=== PATIENT | female | born 2000 | race American Indian/Alaskan Native ===

== ENCOUNTER 2023-01-05 01:19 | Observation (INO) | payer BC ==
[2023-01-05] MEDS ORDERED: Lactated Ringers 1,000 ML IV ONE (01:49)
[2023-01-05] MEDS ORDERED: Acetaminophen 325 MG Tab PO ONE (01:50)
[2023-01-05] MEDS ORDERED: Lactated Ringers 1,000 ML IV SCH (03:45)
== END 2023-01-05 06:11 | disposition home or self-care (01) ==
LOC: JD.OB 01:19
PROVIDERS: ADMIT Family Medicine; ATTEND Family Medicine
DX: O26.893 Other specified pregnancy related conditions, third trimester (principal); R10.9 Unspecified abdominal pain; Z3A.38 38 weeks gestation of pregnancy
CPT/HCPCS: 0352U; 59025; 84112; 96360; 96361; A9270; J7120

== ENCOUNTER 2023-01-21 00:52 | Inpatient (IN) | payer BC ==
[2023-01-21] MEDS ORDERED: Calcium Carbonate 500 MG Tab.Chew PO PRN (12:36)
[2023-01-21] MEDS ORDERED: Ondansetron 4 MG/2 ML SDV IVPUSH PRN (12:36)
[2023-01-21] MEDS ORDERED: Lidocaine 1% 50 ML MDV INJECT ONE (12:36)
[2023-01-21] MEDS ORDERED: Nalbuphine 10 MG/0.5 ML Syringe IVPUSH PRN (12:36)
[2023-01-21] MEDS ORDERED: Sodium Chloride 0.9% 10 ML Syringe FLUSH PRN (12:36)
[2023-01-21] MEDS ORDERED: Misoprostol 25 MCG (1/4 of 100 MCG) Tab PO ONE (12:42)
[2023-01-21] MEDS ORDERED: Penicillin G Potassium 5 MILLUNITS in Sodium Chloride 0.9% 100 ML IV SCH (12:45)
[2023-01-21 13:00] LABS: BASOPHILS PERCENT AUTO 0.1 % (0.0-1.0); EOSINOPHILS ABSOLUTE AUTO 0.1 K/mm3 (0.0-0.4); EOSINOPHILS PERCENT AUTO 1.3 % (0.0-6.0); HEMATOCRIT 34.6 % (37.0-47.0); HEMOGLOBIN 11.4 gm/dl (12.0-16.0); IMMATURE GRAN ABSOLUTE AUTO 0.03 K/mm3 (0.00-0.05); IMMATURE GRAN PERCENT AUTO 0.4 % (0.0-0.4); LYMPHOCYTES ABSOLUTE AUTO 1.7 K/mm3 (1.0-4.8); MEAN CORPUSCULAR HGB CONC 32.9 g/dl (32.0-36.0); MEAN CORPUSCULAR VOLUME 91.1 fl (83.0-99.0); MONOCYTES ABSOLUTE AUTO 0.6 K/mm3 (0.0-0.8); MONOCYTES PERCENT AUTO 6.5 % (0.0-8.0); NEUTROPHILS ABSOLUTE AUTO 6.1 K/mm3 (1.8-7.7); NEUTROPHILS PERCENT AUTO 71.7 % (41.0-71.0); PLATELET COUNT,PLT 231 K/mm3 (150-400); WHITE BLOOD CELL COUNT,WBC 8.52 K/mm3 (3.9-11.3)
[2023-01-21] MEDS: Lactated Ringers 1,000 ML IV SCH ×2 (13:25→18:28)
[2023-01-21] MEDS ORDERED: fentaNYL 100 MCG/2 ML SDV EPIDUR PRN (15:06)
[2023-01-21] MEDS ORDERED: diphenhydrAMINE 50 MG/ML SDV IVPUSH PRN (15:06)
[2023-01-21] MEDS ORDERED: ePHEDrine 50 MG/ML SDV IVPUSH PRN (15:06)
[2023-01-21] MEDS ORDERED: Bupivacaine/fentaNYL/NS 100 ML Bag EPIDUR PRN (15:06)
[2023-01-21] MEDS: Penicillin G Potassium 2.5 MILLUNITS in Sodium Chloride 0.9% 100 ML IV SCH ×2 (17:47→21:09)
[2023-01-21] MEDS ORDERED: Oxytocin/Lactated Ringers 10 UNIT/1,000 ML BAG IV SCH ×2 (21:00)
[2023-01-22] MEDS ORDERED: Acetaminophen 325 MG Tab PO PRN (02:54)
[2023-01-22] MEDS ORDERED: Witch Hazel Medicated Pads 40/Jar TOP PRN (02:54)
[2023-01-22] MEDS ORDERED: Benzocaine/Menthol 20%-0.5% Spray 78 GM Cannister TOP PRN (02:54)
[2023-01-22] MEDS: Ibuprofen 600 MG Tab PO PRN ×3 (03:45→20:40)
[2023-01-22] MEDS ORDERED: Bupivacaine 0.25% 10 ML SDV ONE (04:00)
[2023-01-22 05:49] LABS: BASOPHILS PERCENT AUTO 0.1 % (0.0-1.0); EOSINOPHILS PERCENT AUTO 0.1 % (0.0-6.0); HEMATOCRIT 28.5 % (37.0-47.0); IMMATURE GRAN ABSOLUTE AUTO 0.07 K/mm3 (0.00-0.05); IMMATURE GRAN PERCENT AUTO 0.4 % (0.0-0.4); LYMPHOCYTES ABSOLUTE AUTO 1.4 K/mm3 (1.0-4.8); LYMPHOCYTES PERCENT AUTO 8.9 % (24.0-44.0); MEAN CORPUSCULAR HEMOGLOBIN 31.2 pg (28.0-32.0); MEAN CORPUSCULAR VOLUME 91.6 fl (83.0-99.0); MEAN PLATELET VOLUME 9.9 fl (9.4-12.3); MONOCYTES ABSOLUTE AUTO 1.7 K/mm3 (0.0-0.8); MONOCYTES PERCENT AUTO 10.4 % (0.0-8.0); NEUTROPHILS PERCENT AUTO 80.1 % (41.0-71.0); PLATELET COUNT,PLT 191 K/mm3 (150-400); RED BLOOD CELL COUNT 3.11 M/mm3 (4.10-5.30); WHITE BLOOD CELL COUNT,WBC 16.19 K/mm3 (3.9-11.3)
[2023-01-22 05:53] LABS: HEMOGLOBIN 9.7 gm/dl (12.0-16.0)
[2023-01-22] MEDS: Penicillin G Potassium 2.5 MILLUNITS in Sodium Chloride 0.9% 100 ML IV SCH (07:37)
[2023-01-22] MEDS: Prenatal Multivitamin with Calcium/Folic Acid/Iron Tab PO SCH (13:54)
[2023-01-22] MEDS: Docusate Sodium 100 MG Cap PO PRN (20:40)
[2023-01-23] MEDS: Ibuprofen 600 MG Tab PO PRN ×3 (05:45→21:44)
[2023-01-23] MEDS: Prenatal Multivitamin with Calcium/Folic Acid/Iron Tab PO SCH (16:15)
[2023-01-23] MEDS: Docusate Sodium 100 MG Cap PO PRN (16:16)
[2023-01-23] MEDS: Ferrous Sulfate 324 MG Tab.EC PO SCH (21:45)
[2023-01-24] MEDS: Prenatal Multivitamin with Calcium/Folic Acid/Iron Tab PO SCH ×2 (07:54→13:45)
[2023-01-24] MEDS: Ferrous Sulfate 324 MG Tab.EC PO SCH (10:00)
== END 2023-01-24 12:40 | disposition home or self-care (01) | DRG 560 ==
LOC: JD.OB 00:52 → OBSVTOIN 12:52 → INTOOBSV 12:52 → JD.OB 12:53 → OBSVTOIN 01-22 00:52 → JD.OB 01-22 00:53
PROVIDERS: ADMIT Family Medicine; ATTEND Family Medicine
PROC: 10E0XZZ Delivery of Products of Conception, External Approach (ICD-10-PCS; principal; 2023-01-22)
PROC: 3E033VJ Introduction of Other Hormone into Peripheral Vein, Percutaneous Approach (ICD-10-PCS; 2023-01-22)
PROC: 3E0DXGC Introduction of Other Therapeutic Substance into Mouth and Pharynx, External Approach (ICD-10-PCS; 2023-01-22)
PROC: 3E0R3BZ Introduction of Anesthetic Agent into Spinal Canal, Percutaneous Approach (ICD-10-PCS; 2023-01-22)
PROC: 00HU33Z Insertion of Infusion Device into Spinal Canal, Percutaneous Approach (ICD-10-PCS; 2023-01-22)
PROC: 0UQMXZZ Repair Vulva, External Approach (ICD-10-PCS; 2023-01-22)
PROC: 0KQM0ZZ Repair Perineum Muscle, Open Approach (ICD-10-PCS; 2023-01-22)
PROC: 0T9B70Z Drainage of Bladder with Drainage Device, Via Natural or Artificial Opening (ICD-10-PCS; 2023-01-22)
DX: O48.0 Post-term pregnancy (principal); O99.824 Streptococcus B carrier state complicating childbirth; Z37.0 Single live birth; O71.82 Other specified trauma to perineum and vulva; O70.1 Second degree perineal laceration during delivery; O42.02 Full-term premature rupture of membranes, onset of labor within 24 hours of rupture; O99.02 Anemia complicating childbirth; D64.9 Anemia, unspecified; Z87.891 Personal history of nicotine dependence; Z3A.40 40 weeks gestation of pregnancy
CPT/HCPCS: 01967; 36415; 51702; 59025; 59409; 84112; 85025; 86592; 86850; 86900; 86901; A9270-GY; J2001; J2300; J2540; J2590; J3010; J3490; J7120

== ENCOUNTER 2023-04-10 01:39 | Emergency (ER) | payer BC ==
[2023-04-10] MEDS ORDERED: HYDROmorphone 1 MG/ML Syringe IVPUSH ONE (04:00)
[2023-04-10] MEDS ORDERED: Dextrose 5%-Lactated Ringers 1,000 ML IV SCH (04:00)
[2023-04-10] MEDS ORDERED: Metoclopramide 10 MG/2 ML SDV IVPUSH ONE (04:00)
[2023-04-10 04:09] LABS: APPEARANCE,URINE CLEAR (Clear); BILIRUBIN,URINE NEGATIVE (Negative); COLOR,URINE LIGHT YELLOW (Yellow); GLUCOSE,URINE NEGATIVE (Negative); KETONES,URINE NEGATIVE (Negative); LEUKOCYTE ESTERASE,URINE NEGATIVE (Negative); NITRITE,URINE NEGATIVE (Negative); OCCULT BLOOD,URINE NEGATIVE (Negative); PROTEIN,URINE NEGATIVE (Negative); UROBILINOGEN,URINE 0.2 (0.2-1.0)
[2023-04-10 04:17] LABS: BACTERIA,URINE RARE /hpf (FEW); MUCUS,URINE NOT SEEN /hpf (FEW); RBC,URINE 0-5 /hpf (0-5); SQUAMOUS EPITHELIAL CELLS,UR 0-5 /hpf (0-5); WBC,URINE 0-5 /hpf (0-5)
[2023-04-10 04:21] LABS: BASOPHILS PERCENT AUTO 0.2 % (0.0-1.0); EOSINOPHILS ABSOLUTE AUTO 0.4 K/mm3 (0.0-0.4); EOSINOPHILS PERCENT AUTO 3.9 % (0.0-6.0); HEMOGLOBIN 10.8 gm/dl (12.0-16.0); IMMATURE GRAN ABSOLUTE AUTO 0.02 K/mm3 (0.00-0.05); IMMATURE GRAN PERCENT AUTO 0.2 % (0.0-0.4); LYMPHOCYTES ABSOLUTE AUTO 2.8 K/mm3 (1.0-4.8); LYMPHOCYTES PERCENT AUTO 27.6 % (24.0-44.0); MEAN CORPUSCULAR HEMOGLOBIN 26.6 pg (28.0-32.0); MEAN CORPUSCULAR HGB CONC 30.9 g/dl (32.0-36.0); MEAN CORPUSCULAR VOLUME 86.2 fl (83.0-99.0); MEAN PLATELET VOLUME 9.4 fl (9.4-12.3); MONOCYTES ABSOLUTE AUTO 0.9 K/mm3 (0.0-0.8); MONOCYTES PERCENT AUTO 8.6 % (0.0-8.0); NEUTROPHILS ABSOLUTE AUTO 6.1 K/mm3 (1.8-7.7); NEUTROPHILS PERCENT AUTO 59.5 % (41.0-71.0); PLATELET COUNT,PLT 322 K/mm3 (150-400); RED BLOOD CELL COUNT 4.06 M/mm3 (4.10-5.30); WHITE BLOOD CELL COUNT,WBC 10.22 K/mm3 (3.9-11.3)
[2023-04-10 04:22] LABS: A/G RATIO 0.9 (1-2); ALBUMIN 3.4 g/dl (3.4-5.0); ANION GAP 13.1 (5-15); BILIRUBIN TOTAL 0.6 mg/dL (0.2-1.0); C-REACTIVE PROTEIN 0.4 mg/dL (<1.0); CREATININE 0.8 mg/dL (0.55-1.02); EST CRCL DRUG DOSING (CG) 106.36 mL/min; MAGNESIUM 1.7 mg/dL (1.8-2.4); POTASSIUM,K 4.1 mEq/L (3.5-5.1); PROTEIN TOTAL,TP 7.4 g/dl (6.4-8.2)
[2023-04-10] MEDS ORDERED: Magnesium Citrate Solution 296 ML Bottle PO ONE (05:12)
== END 2023-04-10 05:25 | disposition home or self-care (01) ==
LOC: JD.ED 01:39
DX: K59.01 Slow transit constipation (principal); Z86.16 Personal history of COVID-19
CPT/HCPCS: 36415; 74018; 80053; 81001; 82977; 83690; 83735; 84703; 85025; 86140; 96361; 96374; 96375; 99284; A9270; J1170; J2765; J7121

== ENCOUNTER 2024-03-29 00:15 | Emergency (ER) | payer BC ==
[2024-03-29] MEDS ORDERED: Sodium Chloride 0.9% 10 ML Syringe FLUSH PRN (00:41)
[2024-03-29 00:51] LABS: APPEARANCE,URINE CLEAR (Clear); BILIRUBIN,URINE NEGATIVE (Negative); COLOR,URINE LIGHT YELLOW (Yellow); GLUCOSE,URINE NEGATIVE (Negative); KETONES,URINE NEGATIVE (Negative); LEUKOCYTE ESTERASE,URINE 2+ (Negative); NITRITE,URINE NEGATIVE (Negative); OCCULT BLOOD,URINE NEGATIVE (Negative); PROTEIN,URINE NEGATIVE (Negative); UROBILINOGEN,URINE 0.2 (0.2-1.0)
[2024-03-29 00:57] LABS: BASOPHILS PERCENT AUTO 0.1 % (0.0-1.0); EOSINOPHILS ABSOLUTE AUTO 0.1 K/mm3 (0.0-0.4); EOSINOPHILS PERCENT AUTO 0.8 % (0.0-6.0); HEMATOCRIT 30.2 % (37.0-47.0); HEMOGLOBIN 9.5 gm/dl (12.0-16.0); IMMATURE GRAN ABSOLUTE AUTO 0.03 K/mm3 (0.00-0.05); IMMATURE GRAN PERCENT AUTO 0.3 % (0.0-0.4); LYMPHOCYTES ABSOLUTE AUTO 2.1 K/mm3 (1.0-4.8); LYMPHOCYTES PERCENT AUTO 17.1 % (24.0-44.0); MEAN CORPUSCULAR HEMOGLOBIN 24.3 pg (28.0-32.0); MEAN CORPUSCULAR HGB CONC 31.5 g/dl (32.0-36.0); MEAN CORPUSCULAR VOLUME 77.2 fl (83.0-99.0); MEAN PLATELET VOLUME 9.9 fl (9.4-12.3); MONOCYTES ABSOLUTE AUTO 0.7 K/mm3 (0.0-0.8); MONOCYTES PERCENT AUTO 5.8 % (0.0-8.0); NEUTROPHILS ABSOLUTE AUTO 9.1 K/mm3 (1.8-7.7); NEUTROPHILS PERCENT AUTO 75.9 % (41.0-71.0); PLATELET COUNT,PLT 257 K/mm3 (150-400); RED BLOOD CELL COUNT 3.91 M/mm3 (4.10-5.30); WHITE BLOOD CELL COUNT,WBC 11.97 K/mm3 (3.9-11.3)
[2024-03-29] MEDS: Sodium Chloride 0.9% 1,000 ML IV ONE (01:00)
[2024-03-29 01:24] LABS: A/G RATIO 0.6 (1-2); ALBUMIN 2.7 g/dl (3.4-5.0); ANION GAP 16.5 (5-15); BILIRUBIN TOTAL 0.4 mg/dL (0.2-1.0); CALCIUM 8.9 mg/dL (8.5-10.1); CREATININE 0.5 mg/dL (0.55-1.02); EST CRCL DRUG DOSING (CG) 168.71 mL/min; MAGNESIUM 1.8 mg/dL (1.8-2.4); POTASSIUM,K 3.5 mEq/L (3.5-5.1); PROTEIN TOTAL,TP 7.2 g/dl (6.4-8.2)
[2024-03-29 01:43] LABS: BACTERIA,URINE FEW /hpf (FEW); EPITHELIAL CELLS,URINE 50-75 /hpf (0-5); MUCUS,URINE NOT SEEN /hpf (FEW); RBC,URINE 0-5 /hpf (0-5)
== END 2024-03-29 02:38 | disposition home or self-care (01) ==
LOC: JD.ED 00:15
DX: O99.891 Other specified diseases and conditions complicating pregnancy (principal); R55 Syncope and collapse; O99.012 Anemia complicating pregnancy, second trimester; Z86.16 Personal history of COVID-19; Z79.899 Other long term (current) drug therapy; Z3A.21 21 weeks gestation of pregnancy
CPT/HCPCS: 36415; 71045; 80053; 81001; 83735; 83880; 84484; 84702; 85025; 87086; 93005; 96360; 99284; J7030

== ENCOUNTER 2024-08-09 07:23 | Inpatient (IN) | payer BC ==
[2024-08-09] MEDS ORDERED: Nalbuphine 10 MG/1 ML Vial IVPUSH PRN (07:35)
[2024-08-09] MEDS ORDERED: Lidocaine 1% 50 ML MDV INJECT PRN (07:35)
[2024-08-09] MEDS ORDERED: Ondansetron 4 MG/2 ML SDV IVPUSH PRN (07:35)
[2024-08-09] MEDS ORDERED: Sodium Chloride 0.9% 10 ML Syringe FLUSH PRN (07:35)
[2024-08-09] MEDS ORDERED: Oxytocin/0.9 % Sodium Chloride 30 UNIT/500 ML BAG IV SCH (07:45)
[2024-08-09 08:25] LABS: BASOPHILS PERCENT AUTO 0.2 % (0.0-1.0); EOSINOPHILS ABSOLUTE AUTO 0.1 K/mm3 (0.0-0.4); EOSINOPHILS PERCENT AUTO 1.4 % (0.0-6.0); HEMOGLOBIN 9.6 gm/dl (12.0-16.0); IMMATURE GRAN ABSOLUTE AUTO 0.01 K/mm3 (0.00-0.05); IMMATURE GRAN PERCENT AUTO 0.2 % (0.0-0.4); LYMPHOCYTES ABSOLUTE AUTO 1.8 K/mm3 (1.0-4.8); LYMPHOCYTES PERCENT AUTO 30.5 % (24.0-44.0); MEAN CORPUSCULAR HEMOGLOBIN 24.6 pg (28.0-32.0); MEAN CORPUSCULAR VOLUME 81.8 fl (83.0-99.0); MONOCYTES ABSOLUTE AUTO 0.5 K/mm3 (0.0-0.8); MONOCYTES PERCENT AUTO 8.6 % (0.0-8.0); NEUTROPHILS ABSOLUTE AUTO 3.5 K/mm3 (1.8-7.7); NEUTROPHILS PERCENT AUTO 59.1 % (41.0-71.0); PLATELET COUNT,PLT 185 K/mm3 (150-400); RED BLOOD CELL COUNT 3.91 M/mm3 (4.10-5.30); WHITE BLOOD CELL COUNT,WBC 5.91 K/mm3 (3.9-11.3)
[2024-08-09] MEDS: Lactated Ringers 1,000 ML IV SCH (08:54)
[2024-08-09] MEDS: Penicillin G Potassium 5 MILLUNITS in Sodium Chloride 0.9% 100 ML IV SCH (08:56)
[2024-08-09 09:02] LABS: SLIDE REVIEW ABNORMAL SMEAR
[2024-08-09] MEDS: Oxytocin/0.9 % Sodium Chloride 30 UNIT/500 ML BAG IV SCH (09:05)
[2024-08-09] MEDS: Sodium Chloride 0.9% 10 ML Syringe FLUSH SCH (09:07)
[2024-08-09] MEDS ORDERED: ePHEDrine 50 MG/ML SDV IVPUSH PRN (12:50)
[2024-08-09] MEDS ORDERED: diphenhydrAMINE 50 MG/ML SDV IVPUSH PRN (12:50)
[2024-08-09] MEDS: fentaNYL 100 MCG/2 ML SDV EPIDUR PRN (12:56)
[2024-08-09] MEDS: Bupivacaine/fentaNYL/NS 100 ML Bag EPIDUR PRN (12:57)
[2024-08-09] MEDS: Penicillin G Potassium 2.5 MILLUNITS in Sodium Chloride 0.9% 100 ML IV SCH (13:23)
[2024-08-09] MEDS ORDERED: Docusate Sodium 100 MG Cap PO PRN (18:11)
[2024-08-09] MEDS ORDERED: Acetaminophen 325 MG Tab PO PRN (18:11)
[2024-08-09] MEDS: Ibuprofen 600 MG Tab PO SCH (19:36)
[2024-08-10] MEDS: Ferrous Sulfate 324 MG Tab.EC PO SCH (08:47)
[2024-08-10] MEDS: Witch Hazel Medicated Pads 40/Jar TOP PRN (08:48)
[2024-08-10] MEDS: Benzocaine/Menthol 20%-0.5% Spray 78 GM Cannister TOP PRN (08:48)
[2024-08-10] MEDS: Ibuprofen 600 MG Tab PO SCH (15:07)
== END 2024-08-10 18:12 | disposition home or self-care (01) | DRG 560 ==
LOC: JD.OB 07:23 → OBSVTOIN 16:50 → JD.OB 16:51
PROVIDERS: ADMIT Family Medicine; ATTEND Family Medicine
PROC: 10E0XZZ Delivery of Products of Conception, External Approach (ICD-10-PCS; principal; 2024-08-09)
PROC: 10907ZC Drainage of Amniotic Fluid, Therapeutic from Products of Conception, Via Natural or Artificial Opening (ICD-10-PCS; 2024-08-09)
PROC: 0UQMXZZ Repair Vulva, External Approach (ICD-10-PCS; 2024-08-09)
PROC: 3E0R3BZ Introduction of Anesthetic Agent into Spinal Canal, Percutaneous Approach (ICD-10-PCS; 2024-08-09)
PROC: 00HU33Z Insertion of Infusion Device into Spinal Canal, Percutaneous Approach (ICD-10-PCS; 2024-08-09)
DX: O99.02 Anemia complicating childbirth (principal); Z37.0 Single live birth; O99.824 Streptococcus B carrier state complicating childbirth; O71.82 Other specified trauma to perineum and vulva; Z3A.40 40 weeks gestation of pregnancy; Z86.16 Personal history of COVID-19
CPT/HCPCS: 36415; 51701; 59025; 59409; 85025; 86592; 86850; 86900; 86901; A9270-GY; C1758; J2540; J3010; J3490; J7120; J7999